=== PATIENT | female | born 1945 | race Caucasian/White ===

== ENCOUNTER → 2017-04-03 | Outpatient (CLI) | payer OTHER ==
[~2017-04-03] MED LIST: DSWCR15 TD; ESTR1CRE PV; FAMO40TA6 PO; KRIL1000 PO; MULT-506 PO; PRAV20TA PO; SYN100 PO; TRIA3AER NAE; VERA1TAB53 PO
[2017-04-03 18:33] LABS: ALT/SGPT 26 U/L (12-78); BLOOD UREA NITROGEN 17 mg/dl (7-18); CALCIUM 9.2 mg/dl (8.5-10.1); CARBON DIOXIDE 29 mmol/L (21-32); CHLORIDE 105 mmol/L (98-107); GLUCOSE 88 mg/dl (70-99); SODIUM 140 mmol/L (136-145)
[2017-04-03 18:44] LABS: AST/SGOT 18 U/L (15-37); CHOLESTEROL 239 mg/dl (0-200); CHOLESTEROL/HDL RATIO 3.4; HDL CHOLESTEROL 71 mg/dl; LDL CHOLESTEROL CALCULATED 142 mg/dl; TRIGLYCERIDES 128 mg/dl (0-150); VERY LOW DENSITY LIPOPROT CALC 26 mg/dl
== END | disposition home or self-care (01) ==
LOC: C.LABMFLN 13:23
PROVIDERS: ATTEND Family Medicine
DX: M81.0 Age-related osteoporosis without current pathological fracture (principal); E03.9 Hypothyroidism, unspecified; E78.5 Hyperlipidemia, unspecified; I10 Essential (primary) hypertension

== ENCOUNTER → 2017-06-02 | Outpatient (CLI) | payer OTHER ==
--- NOTE | 2017-06-02 15:21 | DIAGNOSTIC IMAGING REPORT ---
HEAD CT NONCONTRAST CT DOSE: 679.75 mGycm HISTORY: CONCUSSION Syndrome, vertigo TECHNIQUE: Multiaxial CT images of the head were performed without the use of intravenous contrast. Automated exposure control was utilized for this study. A dose lowering technique was utilized adhering to the principles of ALARA. Comparison: None. Findings: The paranasal sinuses and mastoid air cells are clear. The calvarium and skull base are intact. The ventricles and sulci are within normal limits. There is no mass, hematoma, midline shift, or acute infarct. Impression: No acute intracranial abnormality. Electronically signed by: Bc Rosa M.D. 06/02/2017 3:20 PM Dictated Date/Time: 06/02/2017 3:14 PM
== END | disposition home or self-care (01) ==
LOC: C.CTS 14:58
PROVIDERS: ATTEND Family Medicine
DX: F07.81 Postconcussional syndrome (principal); R42 Dizziness and giddiness

== ENCOUNTER → 2017-07-02 | Outpatient (CLI) | payer OTHER | END | disposition home or self-care (01) | LOC: C.MAMM 09:31 | PROVIDERS: ATTEND Family Medicine | DX: M85.89 Other specified disorders of bone density and structure, multiple sites (principal) ==

== ENCOUNTER → 2017-07-02 | Outpatient (CLI) | payer OTHER ==
--- NOTE | 2017-07-03 09:43 | MAMMOGRAPHY REPORT ---
BILATERAL DIGITAL SCREENING MAMMOGRAM WITH CAD: 07/02/2017 CLINICAL HISTORY: Routine screening. Patient has no complaints. TECHNIQUE: Current study was also evaluated with a Computer Aided Detection (CAD) system. Bilateral CC and MLO views were obtained. COMPARISON: Comparison is made to exams dated: 07/01/2016 mammogram, 06/28/2015 mammogram, 06/27/2014 m ammogram, 06/22/2013 mammogram, 06/09/2012 mammogram, and 05/26/2011 mammogram - [facility]. BREAST COMPOSITION: There are scattered areas of fibroglandular density in both breasts. FINDINGS: No suspicious masses, calcifications, or areas of architectural distortion are noted in ei ther breast. There has been no significant interval change compared to prior exams. A round circumsc ribed 7 mm mass within the right central breast is stable compared to multiple prior exams. IMPRESSION: ACR BI-RADS CATEGORY 2: BENIGN There is no mammographic evidence of malignancy. A 1 year screening mammogram is recommended. The pa tient will receive written notification of the results. Approximately 10% of breast cancers are not detected with mammography. A negative mammographic report should not delay biopsy if a clinically suggestive mass is present. Tana Kerr M.D. /:07/02/2017 12:19:16 Rivet Passer: Trudi LAW(Boris)(M), [facility] letter sent: Normal 1/2 BI-RADS Code: ACR BI-RADS Category 2: Benign
== END | disposition home or self-care (01) ==
LOC: C.MAMM 09:28
PROVIDERS: ATTEND Obstetrics & Gynecology
DX: Z12.31 Encounter for screening mammogram for malignant neoplasm of breast (principal)

== ENCOUNTER → 2017-11-13 | Outpatient (CLI) | payer OTHER ==
[~2017-11-13] MED LIST changes: +CALC500C73 PO; +CHOLCAP5 PO; -DSWCR15 TD; -ESTR1CRE PV; -FAMO40TA6 PO; -KRIL1000 PO; +KRIL1CAP7 PO; +LEVO100T PO; +METH4PAK PO; -PRAV20TA PO; +PRVC/40 PO; -SYN100 PO; +TRIA1SPR4 NAE; -TRIA3AER NAE; +VERA180T33 PO; -VERA1TAB53 PO; +VNTHFA/IN INH
== END | disposition home or self-care (01) ==
LOC: C.LABMFLN 13:40
PROVIDERS: ATTEND Family Medicine
DX: E55.9 Vitamin D deficiency, unspecified (principal); E03.9 Hypothyroidism, unspecified; E78.5 Hyperlipidemia, unspecified

== ENCOUNTER → 2017-11-18 | Outpatient (CLI) | payer OTHER ==
[~2017-11-18] MED LIST changes: +OPTIRAY 320 IV PRN
[2017-11-18 14:55] LABS: BASO % 0.5 %; BASO ABS # 0.05 K/uL (0-0.2); EOS % 1.6 %; EOS ABS # 0.15 K/uL (0-0.5); HEMATOCRIT 45.5 % (37-47); HEMOGLOBIN 15.6 g/dL (12.0-16.0); IG# 0.02 K/uL (0.00-0.02); LYMPH % 20.2 %; LYMPH ABS # 1.93 K/uL (1.2-3.4); MEAN CELL VOLUME 92.1 fL (80-100); MEAN CORPUSCULAR HEMOGLOBIN 31.6 pg (25-34); MEAN CORPUSCULAR HGB CONC 34.3 g/dl (32-36); MEAN PLATELET VOLUME 10.7 fL (7.4-10.4); MONO % 10.7 %; MONO ABS # 1.02 K/uL (0.11-0.59); NEUT % 66.8 %; PLATELET COUNT 280 K/uL (130-400); RED CELL DISTRIBUTION WIDTH CV 13.6 % (11.5-14.5); RED CELL DISTRIBUTION WIDTH SD 45.4 fL (36.4-46.3); WHITE BLOOD COUNT 9.57 K/uL (4.8-10.8)
[2017-11-18 15:44] LABS: BLOOD UREA NITROGEN 15 mg/dl (7-18); CALCIUM 9.5 mg/dl (8.5-10.1); CARBON DIOXIDE 24 mmol/L (21-32); CREATININE 0.79 mg/dl (0.60-1.20); GLUCOSE 91 mg/dl (70-99); POTASSIUM 3.7 mmol/L (3.5-5.1); SODIUM 139 mmol/L (136-145)
--- NOTE | 2017-11-18 16:08 | DIAGNOSTIC IMAGING REPORT ---
(CHEST FOR PE) ANGIO WITH CLINICAL HISTORY: 72 years-old Female presenting with ^DYSPNEA ^R/O PE. TECHNIQUE: Multidetector CT angiography of the chest was performed after administration of intravenous contrast. 3-D volumetric and/or maximum intensity projection (MIP) images were subsequently reconstructed for review. IV contrast: 91 mL of Optiray. A dose lowering technique was used consistent with the principles of ALARA (as low as reasonably achievable). COMPARISON: None. CT DOSE (mGy.cm): The estimated cumulative dose is 552.52 mGycm. FINDINGS: [facility] topogram: Unremarkable. Pulmonary vasculature: The study is adequate for assessment of the pulmonary vascular tree. No filling defect within the pulmonary arteries to suggest embolus. Main pulmonary artery is not enlarged. No flattening of the interventricular septum. No intracardiac filling defect. No reflux of contrast into the hepatic veins. Remaining chest: On soft tissue windows, the thyroid is either surgically absent or extremely diminutive. No axillary, supraclavicular, hilar, or mediastinal lymphadenopathy. Atherosclerosis of the aorta. Top normal heart size. Trace pericardial effusion. No pleural effusion. Small hiatal hernia. On lung windows, scattered linear opacities likely atelectasis or scarring. Subpleural solid 3 mm nodule at the posterior right apex (series 4 image 239). Mild mosaic attenuation could suggest small airways disease. Central airways patent. On bone windows, degenerative changes of the spine. IMPRESSION: 1. No evidence of pulmonary embolus. No acute intrathoracic pathology. 2. Scattered limited atelectasis. 3. Solid subpleural 3 mm pulmonary nodule at the right apex. Follow-up per Ced Society 2017 recommendations below. 4. Possible small airways disease. Please refer to below summary of Fleischner Society 2017 recommendations for follow-up of incidental CT nodules (H Marissa et al. Guidelines for management of incidental pulmonary nodules detected on CT images: From the Fleischner Society 2017. Radiology 2017; 284: 228-243.) SOLID NODULES Single nodule; size < 6 mm * Low risk patients: No routine follow-up * High risk patients: Optional CT at 12 months Single nodule; size 6-8 mm * Low risk patients: CT at 6-12 months, then consider CT at 18-24 months * High risk patients: CT at 6-12 months, then at 18-24 months Single nodule; size > 8 mm * Either low or high risk patients: Considered CT at 3 months, PET/CT, or tissue sampling Multiple nodules; size < 6 mm * Low risk patients: No routine follow up * High risk patients: Optional CT at 12 months Multiple nodules; size 6-8 mm * Low risk patients: CT at 3-6 months, then consider CT at 18-24 months * High risk patients: CT at 3-6 months, then at 18-24 months Multiple nodules; size > 8 mm * Low risk patients: CT at 3-6 months, then consider at 18-24 months * High risk patients: CT at 3-6 months, then at 18-24 months SUBSOLID NODULES Single ground-glass nodule * Nodule size < 6 mm: No routine follow-up * Nodule size > or = 6 mm: CT at 6-12 months to confirm persistence, then CT every 2 years until 5 years Single part-solid nodule * Nodule size < 6 mm: No routine follow-up * Nodules size > or = 6 mm: CT at 3-6 months to confirm persistence. If unchanged and solid component remains < 6 mm, annual CT should be performed for 5 years Multiple nodules * Nodule size < 6 mm: CT at 3-6 months. If stable, consider CT at 2 and 4 years. * Nodules size > or = 6 mm: CT at 3-6 months. Subsequent management based on the most suspicious nodule(s) NOTE: These guidelines apply to incidental nodules. These guidelines do not apply to patients younger than 35 years, immunocompromised patients, or patients with cancer. * Low risk patients: Minimal or absent history of smoking and/or other known risk factors * High risk patients: History of smoking, exposure to other carcinogens, emphysema, fibrosis, upper lobe location, family history of lung cancer, etc. If a nodule up to 8 mm is partly solid or is ground glass, further follow-up is required after 24 months to exclude possible slow growing adenocarcinoma. Electronically signed by: Cuco Goff M.D. 11/18/2017 4:07 PM Dictated Date/Time: 11/18/2017 4:02 PM
== END | disposition home or self-care (01) ==
LOC: C.CTS 13:24
PROVIDERS: ATTEND Family Medicine
DX: R91.8 Other nonspecific abnormal finding of lung field (principal); R91.1 Solitary pulmonary nodule; R06.00 Dyspnea, unspecified

== ENCOUNTER → 2017-11-25 | Outpatient (CLI) | payer OTHER ==
[~2017-11-25] MED LIST changes: -OPTIRAY 320 IV PRN
--- NOTE | 2017-11-27 12:27 | MYOCARDIAL PERFUSION SCAN ---
ONE-DAY NUCLEAR MEDICINE TECHNETIUM-99M CARDIOLITE MYOCARDIAL PERFUSION SCAN CLINICAL HISTORY: This stress test is being performed because of exertional dyspnea. COMPARISON: None. TECHNIQUE: For the stress portion of the study, 32.6 mCi of Technetium 99 m Cardiolite IV was injected at 9:20 am on 11/25/2017. Thirty minutes following the injection, imaging of the heart was performed in multiple projection. For the rest portion of the study, 10.5 mCi of Technetium 99 m Cardiolite was injected IV at 7:35 am. One hour following the injection, imaging of the heart was performed in the same projections. For the stress portion of the study, 0.4 mg of Lexiscan was injected intravenously as per protocol. The patient did not experience chest discomfort. Baseline EKG noted sinus rhythm without abnormalities. There were no ST segment changes seen during the study. Following the procedure, the patient was hemodynamically stable without complaints. FINDINGS: The short axis, vertical long axis, horizontal long axis images were reviewed in detail. There is normal tracer uptake at both stress and rest. This excludes a prior myocardial infarction and evidence of stress induced myocardial ischemia. Left ventricle demonstrates hyperdynamic systolic function with an ejection fraction of greater than 70%. There are no wall motion abnormalities. IMPRESSION: 1. No scintigraphic evidence of a prior myocardial infarction or stress induced myocardial ischemia. 2. No Lexiscan induced chest pain. 3. No Lexiscan induced EKG changes. 4. Hyperdynamic left ventricular ejection fraction of greater than 70% without wall motion abnormalities.
== END | disposition home or self-care (01) ==
LOC: C.NUCL 07:03
PROVIDERS: ATTEND Family Medicine
DX: R07.89 Other chest pain (principal); R06.00 Dyspnea, unspecified

== ENCOUNTER 2021-01-28 08:47 | Observation (INO) ==
--- NOTE | 2021-01-23 16:09 | Anesthesiology Consultation ---
Date of Service January 23, 2021 Assessment & Plan (1) Encounter for pre-operative examination: COVID screening: Per assessment on 01/08: Travel screen negative, no known COVID- 19 positive contacts or current COVID-19 related symptoms. Surgeon arranging preop COVID testing (scheduled 01/24; location TBD). Awaiting results. Chart Review Chart Review: Acceptable Risk for Surgery (pending preop testing) and Patient NOT seen in Pre Admission Testing History Surgery Operation Date: 01/28/21 09:30 Proposed Procedures p Left Breast Lumpectomy with [place] Lymph Node Biopsy - Merrill Mac MD, FACS Height/Weight Height: 5 ft 1.5 in Weight: 104.326 kg Allergies Allergy/AdvReac Type Severity Reaction Status Date / Time alendronate sodium Allergy Severe Anaphylaxis Verified 01/08/21 14:55 [From Fosamax] metronidazole Allergy Severe Throat Verified 01/23/21 16:06 swelling clindamycin Allergy Intermediate Diffuse Verified 01/23/21 16:06 rash albuterol Allergy Mild Body aches Verified 01/23/21 16:06 amoxicillin Allergy Mild Rash Verified 01/23/21 16:06 azithromycin [From Zithromax] Allergy Mild Rash Verified 01/08/21 14:55 cephalexin Allergy Mild Itching Verified 01/23/21 16:06 doxycycline Allergy Mild Red rash Verified 01/23/21 16:06 Influenza Virus Vaccines AdvReac Severe Chest Verified 01/08/21 14:55 Heaviness morphine AdvReac Severe Severe Verified 01/23/21 16:06 migraine aspirin AdvReac Mild Stomach Verified 01/23/21 16:06 burning codeine AdvReac Mild Stomach Verified 01/23/21 16:06 burning guaifenesin AdvReac Mild Stomach Verified 01/23/21 16:06 burning meperidine AdvReac Mild Vomiting Verified 01/23/21 16:06 propoxyphene AdvReac Mild Vomiting Verified 01/23/21 16:06 Medications Home Medications Medication Instructions Recorded Confirmed Last Taken multivitamin 1 tab PO QDL 01/19/19 01/08/21 04/10/19 B-complex with vitamin C 1 tab PO QPM 06/10/19 01/08/21 Unknown calcium carbonate 600 mg calcium 600 mg PO QPM tab 07/25/19 01/08/21 Unknown (1,500 mg) tablet levothyroxine 100 mcg tablet 100 mcg PO QAM #90 tab 05/14/20 01/08/21 Unknown escitalopram oxalate 10 mg tablet 10 mg PO HS #90 tab 06/11/20 01/08/21 Unknown hydrochlorothiazide 25 mg tablet 12.5 mg PO Q2D tab 06/28/20 01/08/21 Unknown sumatriptan succinate 50 mg tablet 50 mg PO Q2H PRN #9 tab 07/31/20 01/08/21 Unknown atorvastatin 20 mg tablet 20 mg PO DAILY #90 tab 08/06/20 01/08/21 Unknown cholecalciferol (vitamin D3) 125 10,000 unit PO HS #30 tab 11/09/20 01/08/21 Unknown mcg (5,000 unit) tablet famotidine 20 mg tablet 40 mg PO DAILY PRN #180 tab 11/09/20 01/08/21 Unknown omega-3s 800 mg-dha 186.67 mg-epa 1 cap PO DAILY #30 cap 11/09/20 01/08/21 Unknown 560 mg-fish-vit D3 8.33 mcg capsule verapamil 180 mg 24 hr 360 mg PO DAILY #180 cap 11/09/20 01/08/21 Unknown capsule,extended release ascorbate calcium (vitamin C) 500 mg PO QPM 01/08/21 01/08/21 Unknown Past Medical History Medical History Anxiety Breast cancer New diagnosis Deep vein thrombosis Left leg s/p fall (Summer 2019)- previously on anticoagulation Hx DVT B/L LEs when and while wearing cast on broken foot Diverticular disease Fibromyalgia GERD (gastroesophageal reflux disease) Glaucoma Right eye Hyperlipidemia Hypothyroidism Lung nodule Stable per most recent chest ct per pt Migraine Osteoarthritis Raynaud's disease Past Family History Family History Mother Depression Transient ischemic attack Heart disease Cardiac disorder Hypertension Gallbladder disease Father Heart disease Cardiac disorder Kidney stones S/P CABG x 4 Hypertension FHx: pulmonary embolism Family/Other Sjogren's disease Cardiac disorder Hypertension Uncle Prostate cancer Uncle Cancer Other No family history of adverse response to anesthesia Denies family history of Ovarian cancer Myocardial infarction Breast cancer Colorectal cancer Past Surgical History Surgical History H/O breast biopsy Left H/O dilation and curettage x3 History of appendectomy 1972 History of arthroscopy of right knee History of bowel resection 2010 @ [facility] [place] 9 inches History of colonoscopy History of esophagogastroduodenoscopy (EGD) History of incisional hernia repair History of laparoscopy History of partial hysterectomy History of tonsillectomy and adenoidectomy History of tubal ligation History of wisdom tooth extraction Benavides's neuroma of left foot Removed Nausea and vomiting after administration of anesthetic agent Status post cataract extraction of both eyes with insertion of intraocular lens Social History Smoking Status: Former smoker tobacco type: cigarettes Do You Dip or Chew Tobacco: No Smoking End Date: 1967 Hx Alcohol Use: Yes Alcohol type: wine alcohol intake frequency: a few times a month substance use type: does not use Testing Electrocardiogram Date: 04/27/20 Sinus rhythm at 60 bpm. Borderline LAD. Other Testing Chest CT (07/09/20): No acute intrathoracic abnormality. Unchanged size and appearance of the subpleural 3 mm solid nodule of the apical segment right upper lobe, stable dating back to 11/18/2017 compatible with benign etiology. No suspicious pulmonary nodules or masses. No adenopathy. Cardiomegaly with mild fusiform dilation of the ascending thoracic aorta, 4.1 x 4.1 cm.
[~2021-01-28 08:47] MED LIST changes: -CALC500C73 PO; -CHOLCAP5 PO; +CIPROFLOXACIN / D5W 400 MG/200 ML BAG IV SCH; +HEPARIN SOD 5,000 UNIT/0.5 ML VIAL SQ SCH; -KRIL1CAP7 PO; -LEVO100T PO; +LR 15ML/HR IV SCH; -METH4PAK PO; -MULT-506 PO; -PRVC/40 PO; -TRIA1SPR4 NAE; -VERA180T33 PO; -VNTHFA/IN INH
--- NOTE | 2021-01-28 09:32 | Nuclear Medicine Report ---
NM sentinel node inject only CLINICAL HISTORY: C50.919 - Malignant neoplasm of unspecified site of unspecified female breast left breast carcinoma COMPARISON STUDY: No previous studies for comparison. FINDINGS: A timeout was performed. Five periareolar left breast intradermal injections were performed utilizing a total dose of 0.49 mC i technetium 99m Lymphoseek. The patient was sent to the operating room for intraoperative localization. IMPRESSION: Left breast lymphoscintigraphic ejections were performed. ACT 112: Negative or not required by law. Electronically signed by: Piter Adams M.D. 01/28/2021 9:30 AM
[2021-01-28] MEDS ORDERED: ONDANSETRON INJ 2 MG/ML 2 ML VIAL ONE (09:47)
[2021-01-28] MEDS ORDERED: LIDOCAINE 2% 2 ML VIAL/AMP(20MG/ML) INFIL ONE (09:47)
[2021-01-28] MEDS ORDERED: PROPOFOL IV EMULSION 10 MG/ML 20 ML VIAL IV ONE ×2 (09:47→11:03)
[2021-01-28] MEDS ORDERED: DEXAMETHASONE SOD INJ 4 MG/ML VIAL ONE (09:47)
[2021-01-28] MEDS ORDERED: fentaNYL citrate 100 MCG/2 ML VIAL ONE ×3 (09:48→11:35)
--- NOTE | 2021-01-28 10:29 | History & Physical Bridge Note ---
Date of Service January 28, 2021 History & Physical Bridge Note I have examined the patient, reviewed the History & Physical and in the interval since the performance of the History & Physical I have noted the following changes of clinical significance: no changes noted
[2021-01-28] MEDS ORDERED: BUPIVACAINE 0.5 % 5 MG/1 ML MPF 30ML VIAL ONE (10:34)
[2021-01-28] MEDS ORDERED: ISOSULFAN BLUE 10 MG/ML VIAL 5 ML ONE (10:34)
[2021-01-28] MEDS ORDERED: ONDANSETRON INJ 2 MG/ML 2 ML VIAL IV PRN ×2 (11:04→13:15)
[2021-01-28] MEDS ORDERED: ePHEDrine sulfate 50 MG/ML AMP IV PRN (11:04)
[2021-01-28] MEDS ORDERED: PROMETHAZINE HCL 12.5 MG in SODIUM CHLORIDE 0.9% 50 ML IV PRN ×2 (11:04→13:15)
[2021-01-28] MEDS ORDERED: ATROPINE SULFATE 0.1 MG/ML 10ML SYR IV PRN (11:04)
[2021-01-28] MEDS ORDERED: NALOXONE HCL 0.4 MG/1 ML VIAL/CARP IV PRN (11:04)
[2021-01-28] MEDS ORDERED: FLUMAZENIL 0.1 MG/1 ML 10 ML VIAL IV PRN (11:04)
[2021-01-28] MEDS ORDERED: LABETALOL HCL IV 5 MG/ML 20ML IV PRN (11:04)
[2021-01-28] MEDS ORDERED: ePHEDrine sulfate 50 MG/ML AMP ONE (11:23)
[2021-01-28] MEDS ORDERED: ACETAMINOPHEN 1,000 MG/100 ML VIAL IV ONE (11:57)
--- NOTE | 2021-01-28 11:57 | Post Operative Brief Note ---
PG Immediate Post Op with CF Date of Surgery January 28, 2021 Pre & Post Diagnosis Operation Date: 01/28/21 10:50 Pre-Op Diagnosis: Breast Cancer Post-Op Diagnosis: Breast Cancer I identified the patient and participated in the time-out.: Yes Procedure Operation Date: 01/28/21 10:50 Actual Procedures p Left Breast Lumpectomy with [place] Lymph Node Biopsy(Left) - Merrill Mca MD, FACS Surgeon Merrill Mac MD, FACS [employer] Intern Michael Forde Estimated Blood Loss 10 Findings Consistent with Post-Op Diagnosis Specimens Specimen Description: A. Left Axillary [place] Lymph Node B. Left Breast Tissue - long silk lateral, short silk medial, plain stitch superior, methylene blue deep/posterior, skin anterior C. Additional left breast superior tissue - long silk lateral, methylene blue new margin D. Additional left breast inferior tissue - long silk lateral, methylene blue new margin
[2021-01-28] MEDS: fentaNYL citrate 100 MCG/2 ML VIAL IV PRN ×2 (12:30→12:35)
[2021-01-28] MEDS ORDERED: IBUPROFEN 600 MG TAB PO PRN (13:15)
[2021-01-28] MEDS ORDERED: hydroCHLOROthiazide 25 MG TAB PO SCH (13:15)
--- NOTE | 2021-01-28 13:15 | Anesthesiology Progress Note ---
Date of Service January 28, 2021 Anesthesia Post Procedure Vital Signs Vital Signs: Temp Pulse Pulse Resp BP BP Pulse Ox 01/28/21 12:50 36.4 C L 74 16 137/80 97 01/28/21 12:40 72 16 140/79 94 01/28/21 12:30 77 16 147/76 H 96 01/28/21 12:20 77 16 133/85 94 01/28/21 12:14 36.4 C L 84 16 138/89 94 01/28/21 09:32 36.8 C 75 20 141/69 H 94 Transfer of Care Handoff Completed per policy Notes Mental Status: alert / awake / arousable Patient Amnestic to Procedure: Yes Nausea / Vomiting: adequately controlled Pain: adequately controlled Airway Patency, RR, SpO2: stable & adequate BP & HR: stable & adequate Hydration State: stable & adequate Anesthetic Complications: no major complications apparent
--- NOTE | 2021-01-28 13:59 | Hospitalist Consultation ---
Date of Consultation January 28, 2021 Assessment & Plan (1) Infiltrating ductal carcinoma of left breast: Mrs. Miles is a 75 year old female with a history of Hypertension, Hyperlipidemia, Hypothyroidism, GERD, Lung Nodule, Anxiety, Osteoporosis, Raynaud's Phenomenon, Colonic Polyps, and Infiltrating Ductal Carcinoma who is POD#0 Left Breast s/p Left Breast Lumpectomy and Ogden Node Biopsy. Patient tolerated this procedure well, no reported complications, and no postoperative nausea or vomiting. Patient is being seen in room 351-2, and she has just finished her lunch. She offers no complaints at the present time and states she is feeling well. She has a mild burning discomfort in her left breast but she "wouldn't describe it as pain". She denies any nausea, vomiting, shortness of breath, or cough. She denies any chest pain or abdominal pain. She denies any cardiopulmonary symptoms. Patient's vital signs are stable and she is doing well. Left breast with intact dressing. Pathology is pending. 1. Analgesics as needed for surgical pain. 2. Aggressive DVT prophylaxis with Heparin 500 u subcutaneously every 12 hours, compression stockings. 3. She has met with Dr. Israel [facility] in [place]. 4. She anticipates radiation therapy in [place] at the [facility]. (2) Hx of blood clots: She is a heterozygote for Factor V Leiden Mutation, and DEBBIE screen was positive at > 1:80. Lupus anticoagulant was negative. -- Aggressive DVT prophylaxis with Heparin 500 u subcutaneously every 12 hours, compression stockings. (3) HTN (hypertension): Blood pressures perioperatively are acceptable. -- Continue Verapamil ER 180 mg daily. -- Continue Hydrochlorothiazide 12.5 mg every other day. (4) Hyperlipidemia: Cholesterol Panel 07/2020 showed Total Cholesterol of 223 mg/dl, HDL 68 mg/dl, and an LDL 130 mg/dl. Total Cholesterol to HDL ratio 3.2. -- Continue Atorvastatin 20 mg daily. -- Continue [place] 3 Fish Oil Capsules daily. (5) Hypothyroidism: -- Continue Levothyroxine 100 mcg daily. (6) Chronic GERD: -- She is maintained on Famotidine 40 mg daily. -- Currently asymptomatic. Supervising Physician Co-Signing Physician Notes Consult from ANNA reviewed, agree with his note above. This is a consult from for medical management status post left lumpectomy and sentinel node biopsy. Medical issues appear to be stable at this time. I did order oxycodone 5 mg every 6 hours as needed for postoperative pain. Blood pressure and other vitals are controlled. I will continue to monitor while patient remains in the hospital, she has outpatient oncology scheduled. History of Present Illness Reason for Consultation: -- Post-op Medical Management. -- POD#0 Left Breast Lumpectomy and Ogden Node Biopsy. -- History of DVT. Requesting Physician: Merrill Mac MD, FACS Attending Physician: bK Centeno DO History of Present Illness Mrs. Miles is a 75 year old female with a history of Hypertension, Hype rlipidemia, Hypothyroidism, GERD, Lung Nodule, Anxiety, Osteoporosis, Raynaud's Phenomenon, Colonic Polyps, and Infiltrating Ductal Carcinoma of the Left Breast s/p Left Breast Lumpectomy and Ogden Node Biopsy earlier today. Patient tolerated this procedure well, no reported complications. She will be on Heparin for DVT prophylaxis. Patient is being seen in room 351-2, and she has just finished her lunch. She offers no complaints at the present time and states she is feeling well. She has a mild burning discomfort in her left breast but she "wouldn't describe it as pain". She denies any nausea, vomiting, shortness of breath, or cough. She denies any chest pain or abdominal pain. Patient was initially diagnosed with DVT's during her second which required Heparin for the duration of her . She has had blood clots as well with fractured bones and being casted. Her most recent blood clot was in the summer after she sustained a fall. Allergies Allergy/AdvReac Type Severity Reaction Status Date / Time alendronate sodium Allergy Severe Anaphylaxis Verified 01/28/21 09:25 [From Fosamax] metronidazole Allergy Severe Throat Verified 01/28/21 09:25 swelling clindamycin Allergy Intermediate Diffuse Verified 01/28/21 09:25 rash albuterol Allergy Mild Body aches Verified 01/28/21 09:25 amoxicillin Allergy Mild Rash Verified 01/28/21 09:25 azithromycin [From Zithromax] Allergy Mild Rash Verified 01/28/21 09:25 cephalexin Allergy Mild Itching Verified 01/28/21 09:25 doxycycline Allergy Mild Red rash Verified 01/28/21 09:25 Influenza Virus Vaccines AdvReac Severe Chest Verified 01/28/21 09:25 Heaviness morphine AdvReac Severe Severe Verified 01/28/21 09:25 migraine aspirin AdvReac Mild Stomach Verified 01/28/21 09:25 burning codeine AdvReac Mild Stomach Verified 01/28/21 09:25 burning guaifenesin AdvReac Mild Stomach Verified 01/28/21 09:25 burning meperidine AdvReac Mild Vomiting Verified 01/28/21 09:25 propoxyphene AdvReac Mild Vomiting Verified 01/28/21 09:25 Home Medications Medication Instructions Recorded Confirmed Type multivitamin 1 tab PO QDL 01/19/19 01/28/21 History B-complex with vitamin C 1 tab PO QPM 06/10/19 01/28/21 History calcium carbonate 600 mg calcium 600 mg PO QPM tab 07/25/19 01/28/21 History (1,500 mg) tablet levothyroxine 100 mcg tablet 100 mcg PO QAM #90 tab 05/14/20 01/28/21 Rx escitalopram oxalate 10 mg tablet 10 mg PO HS #90 tab 06/11/20 01/28/21 Rx hydrochlorothiazide 25 mg tablet 12.5 mg PO Q2D tab 06/28/20 01/28/21 History sumatriptan succinate 50 mg tablet 50 mg PO Q2H PRN #9 tab 07/31/20 01/28/21 Rx atorvastatin 20 mg tablet 20 mg PO DAILY #90 tab 08/06/20 01/28/21 Rx cholecalciferol (vitamin D3) 125 10,000 unit PO HS #30 tab 11/09/20 01/28/21 History mcg (5,000 unit) tablet famotidine 20 mg tablet 40 mg PO DAILY PRN #180 tab 11/09/20 01/28/21 Rx omega-3s 800 mg-dha 186.67 mg-epa 1 cap PO DAILY #30 cap 11/09/20 01/28/21 Rx 560 mg-fish-vit D3 8.33 mcg capsule verapamil 180 mg 24 hr 360 mg PO DAILY #180 cap 11/09/20 01/28/21 Rx capsule,extended release ascorbate calcium (vitamin C) 500 mg PO QPM 01/08/21 01/28/21 History Patient History Medical History Anxiety Breast cancer New diagnosis Deep vein thrombosis Left leg s/p fall (Summer 2019)- previously on anticoagulation Hx DVT B/L LEs when and while wearing cast on broken foot Diverticular disease Fibromyalgia GERD (gastroesophageal reflux disease) Glaucoma Right eye Hyperlipidemia Hypothyroidism Lung nodule Stable per most recent chest ct per pt Migraine Osteoarthritis Raynaud's disease Surgical History H/O breast biopsy Left H/O dilation and curettage x3 History of appendectomy 1972 History of arthroscopy of right knee History of bowel resection 2009 @ [facility] [place] 9 inches History of colonoscopy History of esophagogastroduodenoscopy (EGD) History of incisional hernia repair History of laparoscopy History of partial hysterectomy History of tonsillectomy and adenoidectomy History of tubal ligation History of wisdom tooth extraction Benavides's neuroma of left foot Removed Nausea and vomiting after administration of anesthetic agent Status post cataract extraction of both eyes with insertion of intraocular lens Family History Mother Depression Transient ischemic attack Heart disease Cardiac disorder Hypertension Gallbladder disease Father Heart disease Cardiac disorder Kidney stones S/P CABG x 4 Hypertension FHx: pulmonary embolism Family/Other Sjogren's disease Cardiac disorder Hypertension Uncle Prostate cancer Uncle Cancer Other No family history of adverse response to anesthesia Denies family history of Ovarian cancer Myocardial infarction Breast cancer Colorectal cancer Social History Smoking Status: Former smoker Age Started Using Tobacco: 13; Age Quit Using Tobacco: 23; packs per day: 0.5; Smoking End Date: 1967; Second Hand Exposure: No; Do You Dip or Chew Tobacco: No; Tobacco Cessation Education Requested by Patient: No Hx Alcohol Use: Yes Alcohol type: beer and wine Alcohol Intake Frequency: 2-3 x/Week Preferred Language: Uzbek Communication Ability: Effective Visual Impairment: No Limitations Hearing Ability: Normal Igniter Assembler Required: No Beliefs That Will Affect Care: None marital status: Current Living Situation: Spouse current occupational status: retired How many Children do You have: 3 Feels Safe at Home: Yes Safety Concerns: Feels Safe At This Time Childhood Exposure to Second-Hand Smoke: No caffeine: Yes (coffee) during the past year weight has: remained stable Dental Care, Regularly: Yes Physical Activity Frequency: Daily Seatbelt Use: always Sunscreen Use: Yes Do you think of yourself as: straight/heterosexual Assistive Devices: Oxygen - Continuous Review of Systems Review of Systems: All systems reviewed & are unremarkable except as noted in Subjective Physical Exam Physical Exam: Vital signs are stable. GENERAL: Patient in no acute distress, sitting upright in her hospital bed. HEENT: Head is atraumatic, normocephalic. EOM's intact. Facies symmetric. No perioral cyanosis. NECK: No JVD. JVP is not elevated. Carotid upstrokes are + 2 bilaterally. No bruits are noted. CHEST/LUNGS: Clear to auscultation throughout all lung damico. No wheezes, rales, or crackles. Left breast is dressed. CVS: S1 and S2 are regular without obvious murmurs, gallops, or rubs. PMI is nonpalpable. No lifts, heaves, or thrills. No abdominal aortic or renal bruits. ABDOMINAL EXAM: Bowel sounds are present. No masses, organomegaly, or tenderness. EXTREMITIES: No clubbing or cyanosis. No edema. Intact posterior tibial and radial pulses bilaterally. NEUROLOGIC EXAM: Patient is awake, alert, and oriented. Pleasant and cooperative. Answers questions appropriately. Speech is clear. Normal movement in all 4 extremities. Gait pattern was not assessed. Results & Data Results & Data ([facility]) Vital Signs (Past 12 Hours) Vital Signs Temp Pulse Pulse Pulse Resp BP BP 01/28/21 13:30 36.7 C 75 18 144/78 H 01/28/21 13:00 36.9 C 68 16 131/62 01/28/21 12:50 36.4 C L 74 16 137/80 01/28/21 12:40 72 16 140/79 01/28/21 12:30 77 16 147/76 H 01/28/21 12:20 77 16 133/85 01/28/21 12:14 36.4 C L 84 16 138/89 01/28/21 09:32 36.8 C 75 20 141/69 H Pulse Ox 01/28/21 13:30 91 01/28/21 13:00 94 01/28/21 12:50 97 01/28/21 12:40 94 01/28/21 12:30 96 01/28/21 12:20 94 01/28/21 12:14 94 01/28/21 09:32 94 Laboratory Results Laboratory Results - last 24 hr 01/28/21 01/28/21 09:14 09:14 COVID-19 Eval Order Covid19 [facility] SARS-CoV-2, RNA, NAAT NEGATIVE Medications Administered Medications multivitamin 1 tab PO QDL 01/19/19 [History Confirmed 01/28/21] B-complex with vitamin C 1 tab PO QPM 06/10/19 [History Confirmed 01/28/21] calcium carbonate 600 mg calcium (1,500 mg) tablet 600 mg PO QPM tab 07/25/19 [History Confirmed 01/28/21] levothyroxine 100 mcg tablet 100 mcg PO QAM #90 tab 05/14/20 [Rx Confirmed 01/28/21] escitalopram oxalate 10 mg tablet 10 mg PO HS #90 tab 06/11/20 [Rx Confirmed 01/28/21] hydrochlorothiazide 25 mg tablet 12.5 mg PO Q2D tab 06/28/20 [History Confirmed 01/28/21] sumatriptan succinate 50 mg tablet 50 mg PO Q2H PRN #9 tab 07/31/20 [Rx Confirmed 01/28/21] atorvastatin 20 mg tablet 20 mg PO DAILY #90 tab 08/06/20 [Rx Confirmed 01/28/21] cholecalciferol (vitamin D3) 125 mcg (5,000 unit) tablet 10,000 unit PO HS #30 tab 11/09/20 [History Confirmed 01/28/21] famotidine 20 mg tablet 40 mg PO DAILY PRN #180 tab 11/09/20 [Rx Confirmed 01/28/21] omega-3s 800 mg-dha 186.67 mg-epa 560 mg-fish-vit D3 8.33 mcg capsule 1 cap PO DAILY #30 cap 11/09/20 [Rx Confirmed 01/28/21] verapamil 180 mg 24 hr capsule,extended release 360 mg PO DAILY #180 cap 11/09/20 [Rx Confirmed 01/28/21] ascorbate calcium (vitamin C) 500 mg PO QPM 01/08/21 [History Confirmed 01/28/21] Home Medications Acetaminophen (Acetaminophen 325 Mg Tab) 650 mg PO Q4H PRN PRN Reason: Pain Stop: 02/27/21 13:14 Atorvastatin Calcium (Atorvastatin 20 Mg Tab) 20 mg PO DAILY [facility] Stop: 02/28/21 08:59 Escitalopram Oxalate (Escitalopram Oxalate 10 Mg Tab) 10 mg PO HS [facility] Stop: 02/27/21 20:59 Heparin Sodium (Porcine) (Heparin Sod 5,000 Unit/0.5 Ml Vial) 5,000 units SQ Q12 [facility] Stop: 02/27/21 20:59 Hydrochlorothiazide (Hydrochlorothiazide 25 Mg Tab) 12.5 mg PO Q2D@0730 [facility] Stop: 02/27/21 13:14 Ciprofloxacin (Cipro / D5w) 400 mg in 200 mls @ 100 mls/hr IV Q12H [facility] Stop: 01/29/21 20:59 Sodium Chloride (Nss 1000ml) 1,000 mls @ 50 mls/hr IV .Q20H [facility] Stop: 02/27/21 13:59 Last Admin: 01/28/21 13:44 Dose: 50 mls/hr Documented by: Promethazine HCl 12.5 mg/ (Sodium Chloride) 50.5 mls @ 204 mls/hr IV Q6H PRN PRN Reason: Nausea And Vomiting Stop: 02/27/21 13:14 Ibuprofen (Ibuprofen 600 Mg Tab) 600 mg PO Q6H PRN PRN Reason: Pain Stop: 02/27/21 13:14 Levothyroxine Sodium (Levothyroxine Sodium 100 Mcg Tablet) 100 mcg PO DAILYBB [facility] Stop: 02/28/21 06:29 Ondansetron HCl (Ondansetron Inj 2 Mg/Ml 2 Ml Vial) 4 mg IV 4XDQ4H PRN PRN Reason: Nausea Stop: 02/27/21 13:14 Verapamil HCl (Verapamil Hcl 180 Mg Tabcr) 360 mg PO DAILY [facility] Stop: 02/28/21 08:59 PG Care Time/CCT Total # of Minutes Spent Total Time Spent with Patient: Total time spent is greater than 50% in coordination of care (as documented) at patient's floor/unit and/or counseling patient:40 Coding Level of Care Code 04774 Inpt Consult Level 4 Diagnoses Infiltrating ductal carcinoma of left breast C50.912 Hx of blood clots Z86.718 HTN (hypertension) I10 Hyperlipidemia E78.5 Hypothyroidism E03.9 Chronic GERD K21.9 Time Spent (min) 55
[2021-01-28] MEDS ORDERED: SODIUM CHLORIDE 0.9% 1000ML 1,000 ML IV SCH (14:00)
--- NOTE | 2021-01-28 14:34 | Operative Report (OR) ---
DATE OF OPERATION: 01/28/2021 NAME OF OPERATION: Left lumpectomy with sentinel lymph node biopsy. PREOPERATIVE DIAGNOSIS: Left breast cancer. POSTOPERATIVE DIAGNOSIS: Left breast cancer. STAFF SURGEON: Merrill Mac MD. CHUCKING AND SAWING MACHINE OPERATOR: Theodora Forde. ANESTHESIA: General. DESCRIPTION OF PROCEDURE: The patient was brought in the operating room and placed on the operating table in supine position. Her left arm was extended on an arm board. She had a WANDA Evaporator Repairer marker and also undergone injection for sentinel lymph node biopsy. Her left breast and axilla were prepped and draped in usual fashion. Using the Neoprobe, we made an incision in the left axilla. The incisions were anesthetized using 0.5% plain Marcaine. Dissection was carried down in the axilla very deep identifying what appeared to be 2 lymph nodes, which were sent for permanent section. At this point, lumpectomy was performed using the WANDA Evaporator Repairer probe making an elliptical incision in the upper outer left breast carrying dissection down widely around the site. The tissue was marked as left breast tissue with skin anterior, long silk suture lateral, short silk suture medial, plain suture superior and methylene blue deep/posterior margin. We placed the tissue into the Faxitron. Dr. More examined it and felt we had a good amount of tissue. At this point, I took additional superior and inferior tissue with the tissue marked with a silk suture lateral, methylene blue new margin. We placed clips at the level of the tumor and then closed the deep tissue and both incisions using 2-0 plain suture. Left axilla closed skin approximated using 4-0 nylon suture. Breast incision closed using subcuticular 4-0 Monocryl with Steri-Strips. Dressings applied and patient transferred to recovery room in stable condition. I attest to the content of the Intraoperative Record and any orders documented therein. Any exception s are noted below.
[2021-01-28] MEDS: ACETAMINOPHEN 325 MG TAB PO PRN (16:58)
[2021-01-28] MEDS ORDERED: Nursing to Pharmacy Communication SCH (17:15)
[2021-01-28] MEDS: oxyCODONE HCL IR 5 MG TAB (IMMEDIATE RELEASE) PO PRN (17:50)
[2021-01-28] MEDS: HEPARIN SOD 5,000 UNIT/0.5 ML VIAL SQ SCH (20:21)
[2021-01-28] MEDS ORDERED: ESCITALOPRAM OXALATE 10 MG TAB PO SCH (21:00)
[2021-01-28] MEDS ORDERED: VERAPAMIL HCL 180 MG TABCR PO SCH (21:00)
[2021-01-28] MEDS ORDERED: ATORVASTATIN 20 MG TAB PO SCH (21:00)
[2021-01-28] MEDS ORDERED: CIPROFLOXACIN / D5W 400 MG/200 ML BAG IV SCH (21:00)
[2021-01-28] MEDS ORDERED: CALCIUM CARBONATE 500 MG CHEWABLE TAB PO PRN (22:36)
[2021-01-28] MEDS ORDERED: CALCIUM CARBONATE 500 MG CHEWABLE TAB ONE ×2 (22:42→22:46)
[2021-01-29] MEDS: oxyCODONE HCL IR 5 MG TAB (IMMEDIATE RELEASE) PO PRN ×2 (01:23→09:11)
[2021-01-29] MEDS: ACETAMINOPHEN 325 MG TAB PO PRN ×2 (03:43→09:12)
--- NOTE | 2021-01-29 06:26 | Discharge Summary (DS) ---
PRINCIPAL DIAGNOSIS: Left breast cancer. PROCEDURES: The patient underwent left breast lumpectomy with sentinel lymph node biopsy. HISTORY OF PRESENT ILLNESS: The patient is a 75-year-old female with biopsy proven left breast cancer for definitive surgery. HOSPITAL COURSE: The patient was brought into the hospital on 01/28/2021 where she underwent left breast lumpectomy with WANDA Boat Builder marker and left sentinel lymph node biopsy. The patient did well overnight and is felt stable for discharge today to be followed in surgical clinic within 1 week.
[2021-01-29] MEDS ORDERED: LEVOTHYROXINE SODIUM 100 MCG TABLET PO SCH (06:30)
[2021-01-29] MEDS ORDERED: VERAPAMIL HCL 180 MG TABCR PO SCH (09:00)
[2021-01-29] MEDS ORDERED: ATORVASTATIN 20 MG TAB PO SCH (09:00)
[2021-01-29] MEDS: HEPARIN SOD 5,000 UNIT/0.5 ML VIAL SQ SCH (09:13)
--- NOTE | 2021-02-12 14:29 | Mammography Report ---
SPECIMEN LEFT BREAST: 01/28/2021 CLINICAL HISTORY: 75-year-old woman with biopsy-proven carcinoma in the 1:00 left breast. Preoperativ e Melisa Freezer Laboratory Technician localization performed 01/09/2021. COMPARISON: Comparison is made to exams dated: 01/09/2021 mammogram, 01/09/2021 localization, ultrasound biopsy, 12/26/2020 mammogram, 12/26/2020 ultrasound biopsy, and 12/26/2020 ultrasound biopsy - [facility]. FINDINGS: Specimen radiography was performed of the left breast lumpectomy tissue specimen. This rad iograph demonstrates a spiculated mass with associated ribbon-shaped biopsy marker and adjacent Melisa Freezer Laboratory Technician reflector, compatible with successful preoperative localization and subsequent surgical excisio n. Final surgical pathology is pending. IMPRESSION: SPECIMEN Left breast lumpectomy specimen radiograph, as above. Brittaney More M.D. ay/:02/11/2021 14:36:25 Pigment Grinder: OR Technologist, [facility]
== END 2021-01-29 09:41 | disposition home or self-care (01) ==
LOC: 3W 08:47 → ASU 08:47